=== PATIENT | female | born 1960 | race Caucasian/White ===

== ENCOUNTER 2017-01-06 10:59 | Outpatient (CLI) | payer SELFPAY ==
--- NOTE | 2017-01-07 13:55 | Mammography Report ---
DIGITAL SCREENING MAMMOGRAM: 01/06/2017 CLINICAL INDICATION: A 56-year-old with personal history of benign right breast biopsy, for screening . COMPARISON: 05/2014, 08/2013, 07/2013, 04/2012, 12/2010, 11/2009, 10/2008. TECHNIQUE: Routine CC and MLO projections were obtained of the breasts. Bilateral laterally exaggera simba craniocaudal views. FINDINGS: The breasts again demonstrate heterogeneously dense fibroglandular parenchyma bilaterally. Biopsy marker in the right upper outer quadrant is stable. A few coarse, typically benign calcificat ions are present. No suspicious masses, clustered microcalcifications, or regions of architectural di stortion are identified. IMPRESSION: BENIGN FINDINGS. RECOMMENDATION: ROUTINE ANNUAL SCREENING UNLESS OTHERWISE CLINICALLY INDICATED. BIRADS CATEGORY 2-BENIGN FINDINGS. STANDARD QUALIFYING STATEMENTS 1. This examination was reviewed with the aid of Computer-Aided Detection (CAD). 2. A negative or benign imaging report should not delay biopsy if clinically suspicious findings are present. Consider surgical consultation if warranted. More than 5% of cancers are not identified by i maging. 3. Dense breasts may obscure an underlying neoplasm. JOB #: [id number] EXT JOB #:[id number]
== END 2017-01-06 11:00 | disposition home or self-care (01) ==
LOC: DI 10:59
PROVIDERS: ATTEND Specialist
DX: Z12.31 Encounter for screening mammogram for malignant neoplasm of breast (principal)
CPT/HCPCS: 77067

== ENCOUNTER 2022-12-16 07:36 | Outpatient (CLI) | payer SELFPAY ==
[2022-12-16 11:57] LABS: BASOPHILS % (AUTO) 0.5 %; EOSINOPHILS # (AUTO) 0.2 10^3/uL (0.0-0.7); EOSINOPHILS % (AUTO) 3.7 %; HCT - HEMATOCRIT 44.5 % (37.0-47.0); HGB - HEMOGLOBIN 14.7 g/dL (12.0-16.0); LYMPHOCYTES % (AUTO) 32.6 %; MEAN CORPUSCULAR HEMOGLOBIN 32.4 pg (27.0-31.0); MONOCYTES # (AUTO) 0.6 10^3/uL (0.0-1.0); MONOCYTES % (AUTO) 10.5 %; NEUTROPHILS # (AUTO) 3.1 10^3/uL (1.5-6.6); NEUTROPHILS % (AUTO) 52.2 %; PLT - PLATELET COUNT 294 10^3/uL (130-450); RED BLOOD COUNT 4.54 10^6/uL (4.20-5.40); RED CELL DISTRIBUTION WIDTH 13.3 % (12.0-15.0)
[2022-12-16 12:35] LABS: FREE T3 3.18 pg/mL (2.5-3.9); FREE T4 (FREE THYROXINE) 0.68 ng/dL (0.58-1.64)
[2022-12-16 12:36] LABS: THYROID STIMULATING HORMONE 2.86 uIU/mL (0.34-5.60)
[2022-12-16 12:40] LABS: FERRITIN 196.3 ng/mL (11.0-306.8)
[2022-12-16 12:44] LABS: % IRON SATURATION 32 % (20-50); CHOL/HDL RATIO 4.3 (<4.4); CHOLESTEROL 256 mg/dL; HDL CHOLESTEROL 60 mg/dL; IRON 119 ug/dL (28-170); LDL CHOLESTEROL,CALCULATED 183 mg/dL; LDL/HDL RATIO 3.1 (<4.4); TOTAL IRON BINDING CAPACITY 367 ug/dL (250-450); TRANSFERRIN 262 mg/dL (192-382); TRIGLYCERIDES 63 mg/dL; VLDL CHOLESTEROL 13 mg/dL
[2022-12-16 13:02] LABS: ESTIMATED AVERAGE GLUCOSE 100 mg/dL (70-100); HEMOGLOBIN A1c% 5.1 % (4.27-6.07)
[2022-12-16 14:47] LABS: ALBUMIN/GLOBULIN RATIO 1.4 (1.0-2.2); BILIRUBIN,TOTAL 0.8 mg/dL (0.2-1.0); CALCIUM 9.2 mg/dL (8.5-10.3); CREATININE 0.7 mg/dL (0.4-1.0); TOTAL PROTEIN 6.8 g/dL (6.7-8.2)
[2022-12-17 07:10] LABS: ESTRADIOL 14.3 pg/mL (.); PROGESTERONE 0.3 ng/mL (.)
== END 2022-12-16 07:37 | disposition home or self-care (01) ==
LOC: DI.N 07:36 → LAB.N 07:37
PROVIDERS: ATTEND Naturopath
DX: E03.9 Hypothyroidism, unspecified (principal); M95.9 Acquired deformity of musculoskeletal system, unspecified; E78.9 Disorder of lipoprotein metabolism, unspecified; R73.09 Other abnormal glucose
CPT/HCPCS: 36415; 80053; 80061; 82670; 82728; 83036; 83540; 83721; 84144; 84403; 84439; 84443; 84466; 84481; 85025

== ENCOUNTER 2022-12-16 08:00 | Outpatient (CLI) | payer SELFPAY ==
--- NOTE | 2022-12-16 12:21 | XRAY Report ---
PROCEDURE: Ankle 3 View RT INDICATIONS: M25.571 ANKLE AND FOOT JOINT PAIN TECHNIQUE: 3 views of the ankle were acquired. COMPARISON: X-ray foot 12/16/2022 FINDINGS: Bones: No fractures or dislocations. Ankle mortise is normally aligned. No suspicious bony lesions . Soft tissues: No tibiotalar joint effusion. Achilles tendon appears normal. IMPRESSION: No visualized acute fracture or dislocation. However, occult injury cannot be excluded. Recommend nir rt interval imaging follow-up in 7-10 days as clinically indicated for additional evaluation. Reviewed by: Cathy Shultz MD on 12/16/2022 12:20 PM PDT Approved by: Cathy Shultz MD on 12/16/2022 12:20 PM PDT Station ID: [id number]
--- NOTE | 2022-12-16 12:21 | XRAY Report ---
PROCEDURE: Foot 3 View RT INDICATIONS: M25.571 ANKLE AND FOOT JOINT PAIN TECHNIQUE: 3 views of the foot were acquired. COMPARISON: X-ray ankle 12/16/2022 FINDINGS: Bones: No fractures or dislocations. No suspicious bony lesions. Soft tissues: No suspicious soft tissue calcifications or masses. IMPRESSION: No visualized acute fracture or dislocation. However, occult injury cannot be excluded. Recommend nir rt interval imaging follow-up in 7-10 days as clinically indicated for additional evaluation. Reviewed by: Cathy Shultz MD on 12/16/2022 12:20 PM PDT Approved by: Cathy Shultz MD on 12/16/2022 12:20 PM PDT Station ID: [id number]
== END 2022-12-16 23:59 | disposition home or self-care (01) ==
LOC: DI.N 08:00
PROVIDERS: ATTEND Naturopath
DX: M25.571 Pain in right ankle and joints of right foot (principal)